=== PATIENT | female | born 1980 | race Caucasian/White ===

== ENCOUNTER → 2024-06-02 | Outpatient (CLI) | payer OTHER ==
[~2024-06-02] MED LIST: ALPR0.25; DULO1CAP6; FLUTISP; LOSA50TA28; VITA50005
== END ==
LOC: M WHC 13:31 → MERGE 14:00
PROVIDERS: ATTEND Family Medicine
DX: Z12.31 Encounter for screening mammogram for malignant neoplasm of breast (principal)